=== PATIENT | male | born 1985 | race Hispanic/Latino ===

== ENCOUNTER 2021-01-05 11:03 | Emergency (ER) | payer OTHER ==
[2021-01-05] MEDS ORDERED: Tetracaine 0.5% PF 4 ML BOT ONE (11:16)
[2021-01-05] MEDS ORDERED: Fluorescein Opthalmic Strip ONE (11:16)
[2021-01-05] MEDS ORDERED: TETANUS, DIPHTHERIA TOX,ADULT (TDVAX) 0.5 ML VIAL IM ONE (12:29)
== END 2021-01-05 12:34 | disposition home or self-care (01) ==
LOC: NAV ERS 11:03
DX: T15.12XA Foreign body in conjunctival sac, left eye, initial encounter (principal); F17.210 Nicotine dependence, cigarettes, uncomplicated
CPT/HCPCS: 65205; 90471; 90714